=== PATIENT | female | born 1965 | race Caucasian/White ===

== ENCOUNTER 2016-12-11 09:12 | Emergency (ER) | payer OTHER ==
[~2016-12-11] VITALS: Ht 165.1 cm; Wt 109.3 kg
--- NOTE | 2016-12-11 10:10 | PHYS DOC ---
Adult General Chief Complaint Chief Complaint: KNEE INJURY HPI HPI Patient is a 51 year old female with no significant medical history who presents today with left knee pain that began 4 days ago. Patient states she has been walking more than normal. She states 4 days ago she went for 2 mile walk and was going up and down hills when this pain began. Patient denies falling. Patient states the pain is on the lower anterior aspect of the knee. Review of Systems Review of Systems Constitutional: Denies fever or chills [] Eyes: Denies change in visual acuity, redness, or eye pain [] HENT: Denies nasal congestion or sore throat [] Musculoskeletal: Left knee pain Integument: Denies rash or skin lesions [] Neurologic: Denies headache, focal weakness or sensory changes [] Endocrine: Denies polyuria or polydipsia [] Allergies Allergies Allergies Coded Allergies Type Severity Reaction Last Updated Verified Penicillins Allergy Unknown 12/11/16 No Sulfa (Sulfonamide Antibiotics) Allergy Unknown 12/11/16 No bee pollen Allergy Unknown 12/11/16 No egg Allergy Unknown 12/11/16 No erythromycin base Allergy Unknown 12/11/16 No lanolin Allergy Unknown 12/11/16 No rice Allergy Unknown 12/11/16 No Physical Exam Physical Exam Constitutional: Well developed, well nourished, no acute distress, non-toxic appearance. [] HENT: Normocephalic, atraumatic, bilateral external ears normal, oropharynx moist, no oral exudates, nose normal. [] Skin: Warm, dry, no erythema, no rash. [] Back: No tenderness, no CVA tenderness. [] Extremities: Left knee with no obvious deformity. Slight tenderness on palpation of the proximal tibia. Full range of motion to the left knee, negative Bethel sign and negative Lissette's sign negative anterior-posterior drawer sign to the left knee. +2 left pedal pulse. Cap refill less than 2 seconds left lower extremity. Sensation intact left lower extremity. Neurologic: Alert and oriented X 3, normal motor function, normal sensory function, no focal deficits noted. [] Psychologic: Affect normal, judgement normal, mood normal. [] Current Patient Data Vital Signs Vital Signs Date Time Temp Pulse Resp B/P Pulse Ox O2 Delivery O2 Flow Rate FiO2 12/11/16 10:17 98.0 78 18 97 Room Air 98.0 EKG EKG [] Radiology/Procedures Radiology/Procedures []PROCEDURE: KNEE LEFT 4V Left knee with patella, 4 views, 12/11/2016: History: Knee pain No fracture or dislocation is identified. There is mild spurring medially at the knee joint and at the patellofemoral articulation. No significant joint effusion is evident. IMPRESSION: 1. Mild degenerative change. 2. No acute bony abnormality is detected. DICTATED and SIGNED BY: MARTHA ROMERO MD DATE: 12/11/16 1018 CC: SANDRA BUSH APRN; CHRISTI MORGAN MD ~ Course & Med Decision Making Course & Med Decision Making Pertinent Labs and Imaging studies reviewed. (See chart for details) Patient is in the ED with left knee pain after ambulating for a while. No known injury. Left knee x-rays interpreted by radiologist are negative for any acute findings but noted for DJD. Instructed was applied to the left knee by the ED RN , neurovascular exam done by me is normal, cap refill less than 2 seconds. Ice and elevation encouraged. Follow-up with orthopedic doctor in the course of this week. Dragon Disclaimer Dragon Disclaimer This electronic medical record was generated, in whole or in part, using a voice recognition dictation system. Departure Departure Impression: Primary Impression: Left knee sprain Additional Impression: Degenerative joint disease of knee, left Disposition: 01 HOME, SELF-CARE Condition: STABLE Referrals: CHRISTI MORGAN MD (PCP) ATTILA EDWARDS MD Follow-up with orthopedic doctor provided in a week Patient Instructions: Arthritis, Nonspecific, Knee Sprain Additional Instructions: You were seen for left knee pain. We suspect you sprained the knee as well as overused it when ambulating. Exercises is good, exercise wisely. Ice and elevate the extremity. Wear the Len wrap as needed and tolerated. Take the prescribed medicine as needed for pain. Scripts Methylprednisolone (Medrol)4 Mg Tab.ds.pk1 Pkg PO UD #1 PKG Prov:SANDRA BUSH APRN 12/11/16 Diclofenac Sodium 75 Mg Tablet.dr1 Tab PO BID #20 TAB Ref 1 Prov:SANDRA BUSH APRN 12/11/16 Problem Qualifiers Primary Impression: Left knee sprain Encounter type: initial encounter Involved ligament of knee: unspecified ligament Qualified Code: S83.92XA - Sprain of unspecified site of left knee, initial encounter Additional Impression: Degenerative joint disease of knee, left Osteoarthritis type: unspecified Qualified Code: M17.12 - Unilateral primary osteoarthritis, left knee SANDRA BUSH APRN Dec 11, 2016 10:10
[2016-12-11 10:17] VITALS: BP 132/84
--- NOTE | 2016-12-11 10:22 | RAD ---
Left knee with patella, 4 views, 12/11/2016: History: Knee pain No fracture or dislocation is identified. There is mild spurring medially at the knee joint and at the patellofemoral articulation. No significant joint effusion is evident. IMPRESSION: 1. Mild degenerative change. 2. No acute bony abnormality is detected.
[2016-12-11] MEDS ORDERED: DICL75TA PO (10:41)
[2016-12-11] MEDS ORDERED: METH4TAB2 PO (10:41)
== END 2016-12-11 10:49 | disposition home or self-care (01) ==
LOC: ER 09:12
DX: S83.92XA Sprain of unspecified site of left knee, initial encounter (principal); M17.12 Unilateral primary osteoarthritis, left knee; Z88.0 Allergy status to penicillin; Z88.2 Allergy status to sulfonamides; Z88.1 Allergy status to other antibiotic agents; Z91.030 Bee allergy status; Z91.012 Allergy to eggs; Z91.018 Allergy to other foods; Z91.048 Other nonmedicinal substance allergy status; X58.XXXA Exposure to other specified factors, initial encounter; Y93.89 Activity, other specified; Y92.89 Other specified places as the place of occurrence of the external cause; Y99.8 Other external cause status
CPT/HCPCS: 73564; 99284

== ENCOUNTER → 2017-01-02 | Outpatient (CLI) | payer OTHER ==
[2016-12-11 10:17] VITALS: BP 132/84
[~2017-01-02] MED LIST: DICL75TA PO; METH4TAB2 PO
--- NOTE | 2017-01-03 10:19 | KCIC ---
PROCEDURE MR of the left knee HISTORY Left knee pain medially for a few weeks. TECHNIQUE Routine multiplanar sequences are obtained. COMPARISON None FINDINGS Minimal undersurface irregularity at the posterior horn of the medial meniscus adjacent to the root attachment. There is also mild signal and distortion of the posterior horn and body junction on a single coronal slice. Findings compatible with a mild degenerative tear. No evidence of lateral meniscal tear. Anterior and posterior cruciate ligaments are intact. Mild proximal medial collateral ligament thickening with mild marginated edema, suggesting a mild sprain. Iliotibial band unremarkable. Fibular collateral ligament, biceps femoris tendon and popliteus tendon are intact. Extensor mechanism is intact. Moderate chondromalacia at the medial joint compartment. Severe chondromalacia at the femoral trochlea, moderate at the patella. No bone lesion. No acute fracture. Trace Dominguez cyst. IMPRESSION 1. Small tear of the medial meniscus. 2. Primary osteoarthritis. 3. Mild proximal medial collateral ligament sprain. Electronically signed by: Rey Villatoro MD (January 03, 2017 10:17:48)
== END | disposition home or self-care (01) ==
LOC: KCIC MRI 08:29
PROVIDERS: ATTEND Orthopaedic Surgery
DX: M17.12 Unilateral primary osteoarthritis, left knee (principal)
CPT/HCPCS: 73721